=== PATIENT | male | born 1955 ===

== ENCOUNTER 2024-04-02 10:15 | Inpatient (IN) | payer MEDICARE, BC, SELFPAY ==
--- NOTE | 2024-03-09 15:37 | CM ---
Addendum entered by Ekta Clayton 03/29/24 10:17:
Spoke again with patient. He has obtained a raised toilet seat and firm cushion.
Original Note:
Patient is scheduled for an elective R THR on 04/02/24. Spoke with patient prior to surgery via telephone. Introduced role of Orthopedic Navigator. Patient reports that he lives son in a split level home. There is a 3-1 step to enter and 6 steps up to
full bathroom and bedroom. There is half bath on lowest level down 6 steps from order entry technician. He currently functions independently. He plans to get a rolling walker, hip kit and cane. He has comfort height toilet seat. He has never had VN services.
PCP is Dr. Neves.
Discussed orthopedic program and post surgical plans. Reviewed that goal is for him to return home when directed by surgeon. Also reviewed outpatient PT. Patient is in agreement with tentative plan and will go directly to outpatient PT at [facility].
He will have support from his son when he goes home.
Patient will complete online education.
Plan: Orthopedic Navigator will remain available to assist with the care of patient and will reassess discharge needs after surgery.
[2024-03-15 09:04] VITALS: BMI 37.9
[2024-03-15 10:29] LABS: Hematocrit 42.6 % (39.0-52.0); Hemoglobin 14.7 g/dL (13.0-18.0); Mean Corp Hgb Conc. 34.5 g/dL (33.0-37.0); Mean Corpuscular Hgb 30.1 pg (27.0-31.0); Mean Corpuscular Volume 87.3 fL (80.0-94.0); Mean Platelet Volume 10.4 fL (7.4-10.4); Platelet Count 155 10^3/uL (130-400); Red Blood Cell Count 4.88 10^6/uL (4.70-6.10); Red Cell Dist. Width 13.8 % (11.5-14.5); White Blood Cell Count 7.2 10^3/uL (4.8-10.8)
[2024-03-15 10:51] LABS: ALT (SGPT) 37 U/L (0-50); AST (SGOT) 31 U/L (17-59); Albumin 4.5 g/dl (3.5-5.0); Alkaline Phosphatase 66 U/L (38-126); Blood Urea Nitrogen 24 mg/dl (9-20); Calcium 9.7 mg/dl (8.4-10.2); Carbon Dioxide 22 mmol/L (22-30); Chloride 104 mmol/L (98-107); Estimated Creatinine Clearance 72 ml/min; Glucose 128 mg/dl (70-99); Potassium 4.5 mmol/L (3.5-5.1); Sodium 139 mmol/L (135-145); Total Bilirubin 0.5 mg/dl (0.2-1.3); Total Protein 6.9 g/dl (6.3-8.2); eGFR > 60.00
[2024-03-15 12:52] LABS: Glycohemoglobin (HgbA1c) 6.9 % (4.0-5.6)
[2024-03-15 16:00] VITALS: BMI 37.9
[2024-04-02] VITALS (12 sets, daily range): BP systolic 96–156; BP diastolic 45–86
[2024-04-02] MEDS: CELEBREX 200 MG PO (10:49)
[2024-04-02] MEDS: TYLENOL 650 MG PO ×2 (10:49→19:55)
[2024-04-02 11:14] LABS: Glucose - Point of Care 119 mg/dl (70-99)
[2024-04-02] MEDS: NORMOSOL-R 1000 IV ×2 (11:15→15:56)
[2024-04-02 13:10] LABS: Glucose - Point of Care 94 mg/dl (70-99)
[2024-04-02 15:43] LABS: Glucose - Point of Care 115 mg/dl (70-99)
[2024-04-02] MEDS: TYLENOL PO ×2 (15:58→17:33)
[2024-04-02] MEDS: ROXICODONE 5 MG PO ×2 (16:28→20:06)
[2024-04-02 17:30] LABS: Glucose - Point of Care 149 mg/dl (70-99)
--- NOTE | 2024-04-02 17:34 | PTCARENOTE ---
Pt arrived to [facility] from PACU s/p R THR. NV intact, aquacel dressing C/D/I, on 2L NC satting 98%, IVF infusing. Pt states mild pain at this time. Oriented to call rojas and room, bed locked in lowest position, call rojas within reach.
[2024-04-02] MEDS: LIPITOR 10 MG PO (18:03)
[2024-04-02] MEDS: GLUCOPHAGE XR EXTENDED RELEASE 1000 MG PO (18:03)
[2024-04-02] MEDS: ASPIRIN 325 MG PO (18:03)
[2024-04-02] MEDS: BACTROBAN 2% OINTMENT 1 APPLIC NASAL (19:54)
[2024-04-02] MEDS: ANCEF 5 IV (19:54)
[2024-04-02] MEDS: COLACE 100 MG PO (19:54)
[2024-04-02] MEDS: TORADOL 15 MG IV (19:55)
[2024-04-02] MEDS: SENOKOT 17.1999999999999993 MG PO (19:55)
[2024-04-02] MEDS: GLUCOTROL XL (EXTENDED RELEASE) 5 MG PO (19:56)
[2024-04-02] MEDS: FLOMAX 0.400000000000000022 MG PO (21:26)
[2024-04-02] MEDS: NEURONTIN 300 MG PO (21:26)
[2024-04-02 21:28] LABS: Glucose - Point of Care 217 mg/dl (70-99)
[2024-04-02] MEDS: DILAUDID 0.5 MG IV (22:50)
[2024-04-03] MEDS: TYLENOL PO (00:16)
[2024-04-03] MEDS: ROXICODONE 5 MG PO ×2 (03:11→07:51)
[2024-04-03] MEDS: ANCEF 5 IV (03:11)
[2024-04-03] MEDS: TYLENOL 650 MG PO ×3 (03:11→11:52)
[2024-04-03 04:05] VITALS: BP 134/69
[2024-04-03] MEDS: SYNTHROID 150 MCG PO (05:11)
[2024-04-03 07:43] LABS: Glucose - Point of Care 117 mg/dl (70-99)
[2024-04-03 07:45] VITALS: BP 160/71
[2024-04-03] MEDS: TORADOL 15 MG IV (07:49)
[2024-04-03] MEDS: COLACE 100 MG PO (07:50)
[2024-04-03] MEDS: GLUCOTROL XL (EXTENDED RELEASE) 5 MG PO (07:50)
[2024-04-03] MEDS: SENOKOT 17.1999999999999993 MG PO (07:50)
[2024-04-03] MEDS: FLOMAX 0.400000000000000022 MG PO ×2 (07:50→07:51)
[2024-04-03] MEDS: MOBIC 15 MG PO (07:51)
[2024-04-03] MEDS: GLUCOPHAGE XR EXTENDED RELEASE 1000 MG PO (07:51)
[2024-04-03] MEDS: LIPITOR 10 MG PO (07:51)
[2024-04-03] MEDS: ASPIRIN 325 MG PO (07:51)
[2024-04-03] MEDS: BACTROBAN 2% OINTMENT 1 APPLIC NASAL (08:03)
[2024-04-03] MEDS: ZESTRIL 5 MG PO (08:22)
--- NOTE | 2024-04-03 08:42 | CM ---
Addendum entered by Ekta Clayton 04/03/24 10:49:
Patient did well in therapy. He has no concerns about going home. He has updated his son.
Original Note:
Reviewed chart and held rounds with PT, OT and nursing. Patient admitted as planned for elective R THR. Met with patient at bedside. Confirmed information previously obtained for assessment. Also discussed discharge plans. The plan is for patient to
return home at discharge. His son will stay with him tonight. Patient will go directly to outpatient PT and will go to [facility]. He has an appointment scheduled for Tuesday, 04/04.
Patient has a rolling walker, cane, raised toilet seat, hip kit and firm cushion.
He will use [facility] pharmacy for discharge prescriptions.
[2024-04-03 09:20] VITALS: BP 130/66; PULSE 77; O2SAT 95
[2024-04-03 10:26] VITALS: BP 141/70; PULSE 82; O2SAT 95
[2024-04-03 11:20] VITALS: BP 141/72
--- NOTE | 2024-04-03 11:30 | W.PN.ORTHO ---
Today's Communication / Plan
-
d/c
Assessment
.
Distal Motor Intact: Yes
Dressing:
Clean, dry and intact.
Assessment:
BPH/Urinary retention--improved
Plan
.
Surgery / Date: Sarah Hoff 04/02/24
DVT Prophylaxis: Aspirin
Activity:
Out of bed.
PT/OT
Discharge Plan: Home w/ Outpatient PT
Subjective
.
.:
Patient resting comfortably.
Vital Signs and Labs
.
Vital Signs and Labs:
Lab Results
03/15/24 09:00
03/15/24 09:00
Temp Pulse Resp BP Pulse Ox
97.5 F 89 18 160/71 95
04/03/24 07:45 04/03/24 07:45 04/03/24 07:45 04/03/24 08:22 04/03/24 08:00
Non-invasive Hgb result: 13.6
Physical Exam
-
HEENT: No pallor, cyanosis, or jaundice. Throat clear.
NECK: Supple. No JVD.
RESPIRATORY: Lungs clear to auscultation.
CVS: S1, S2 normal. RRR.� No murmur, rub or gallop.
ABDOMEN: Soft, non-tender. No distension. BS+/normal.
EXTREMITIES: strength equal, no calf pain with palpation
FLIGHT OPERATIONS MANAGER: AOx3. No focal deficits. floor finisher helper grossly intact
[2024-04-03 11:35] LABS: Glucose - Point of Care 120 mg/dl (70-99)
--- NOTE | 2024-04-03 11:38 | W.DS.TRANS ---
DC Summary - [employer]
-
Discharge Instructions:
Discharge Diagnosis/Procedures R LIZETH Dr. Hoff 04/02/24
Diet Diabetic, Carb Controlled
Activity With Walker
Driving Restrictions No driving
Bathing Restrictions OK to Shower
Other Services PT
Instructions:
Stand-Alone Forms: Total Hip/Knee Replacement D/C
Changes to Home Medications: Yes
Discharge Medications:
DC Medications w/original date entered in [employer]
alfuzosin 10 mg tablet,extended release 24 hr 10 mg PO DAILY Urinary Issue 03/12/24
ascorbic acid (vitamin C) 1,000 mg tablet (Vitamin C) 1,000 mg PO DAILY Supplement 03/12/24
atorvastatin 10 mg tablet 10 mg PO DAILY High Cholesterol 03/12/24
cholecalciferol (vitamin D3) 50 mcg (2,000 unit) capsule (Vitamin D3) 50 mcg PO DAILY Supplement 03/12/24
cyanocobalamin (vitamin B-12) 1,000 mcg tablet,extended release (Vitamin B-12 ER) 1,000 mcg PO DAILY Supplement 03/12/24
glipizide 5 mg tablet, extended release 24 hr 5 mg PO BID Diabetes 03/12/24
hydrochlorothiazide 25 mg tablet 25 mg PO DAILY Blood Pressure 03/12/24
levothyroxine 150 mcg tablet 150 mcg PO DAILY Thyroid 03/12/24
lisinopril 10 mg tablet 10 mg PO DAILY Blood Pressure 03/12/24
metformin 1,000 mg tablet,extended release 24hr (osmotic) 1,000 mg PO BID Diabetes 03/12/24
semaglutide 2 mg/dose (8 mg/3 mL) subcutaneous pen injector (Ozempic) 2 mg SC QWEEK Diabetes 03/12/24
tadalafil 5 mg tablet 5 mg PO DAILY Urinary Issue 03/12/24
zinc acetate 50 mg (zinc) capsule 50 mg PO DAILY Supplement 03/12/24
mupirocin 2 % topical ointment 1 applic topical BID infection prevention #1 tube 03/15/24
tamsulosin 0.4 mg capsule 0.4 mg PO HS #7 caps 03/15/24
acetaminophen 325 mg capsule (Tylenol) 650 mg (2 x 325 mg) PO QID #2 caps 04/03/24
aspirin 325 mg tablet 325 mg PO DAILY blood clot prevention #1 tab 04/03/24
celecoxib 200 mg capsule 200 mg PO DAILY anti-inflammatory #14 caps 04/03/24
docusate sodium 100 mg capsule (Colace) 100 mg PO BID stool softner #1 cap 04/03/24
famotidine 20 mg tablet 20 mg PO HS GI prophylaxis #30 tabs 04/03/24
gabapentin 300 mg capsule 300 mg PO HS sleep/pain #10 caps 04/03/24
magnesium hydroxide 400 mg/5 mL oral suspension (Milk of Magnesia) 30 ml PO HS PRN Constipation #1 mL 04/03/24
oxycodone 5 mg tablet 5 mg PO Q6H PRN 1 tab moderate pain, 2 tabs severe pain #30 tabs 04/03/24
sennosides 8.6 mg tablet (Senokot) 17.2 mg (2 x 8.6 mg) PO BID laxative #2 tabs 04/03/24
Home Medication Changes
celecoxib 200 mg capsule 200 mg PO DAILY anti-inflammatory #14 caps 04/03/24�
famotidine 20 mg tablet 20 mg PO HS GI prophylaxis #30 tabs 04/03/24�
gabapentin 300 mg capsule 300 mg PO HS sleep/pain #10 caps 04/03/24�
oxycodone 5 mg tablet 5 mg PO Q6H PRN 1 tab moderate pain, 2 tabs severe pain #30 tabs 04/03/24�
Pending Results: No
[2024-04-03] MEDS: ROXICODONE 10 MG PO (11:52)
== END 2024-04-03 13:13 | disposition home or self-care (01) | DRG 470 ==
LOC: 2 SOUTH 10:15
PROVIDERS: ADMITTING PHYSICIAN Specialist; FAMILY PHYSICIAN Family Medicine; REFERRING PHYSICIAN Urology
PROC: 0SR904A Replacement of Right Hip Joint with Ceramic on Polyethylene Synthetic Substitute, Uncemented, Open Approach (ICD-10-PCS; 2024-04-02)
DX: M16.11 Unilateral primary osteoarthritis, right hip (principal); Z68.37 Body mass index [BMI] 37.0-37.9, adult; E11.59 Type 2 diabetes mellitus with other circulatory complications; E11.65 Type 2 diabetes mellitus with hyperglycemia; I10 Essential (primary) hypertension; E78.5 Hyperlipidemia, unspecified; E03.9 Hypothyroidism, unspecified; N40.1 Benign prostatic hyperplasia with lower urinary tract symptoms; R33.9 Retention of urine, unspecified; G47.33 Obstructive sleep apnea (adult) (pediatric); I25.10 Atherosclerotic heart disease of native coronary artery without angina pectoris; E66.01 Morbid (severe) obesity due to excess calories; Z79.84 Long term (current) use of oral hypoglycemic drugs; Z79.85 Long-term (current) use of injectable non-insulin antidiabetic drugs; Z79.82 Long term (current) use of aspirin; Z79.890 Hormone replacement therapy; Z87.891 Personal history of nicotine dependence
CPT/HCPCS: 36415; 73502; 80053; 82962; 83036; 85027; 87070; 97116; 97162; 97166